=== PATIENT | male | born 1970 | race African-American/Black ===

== ENCOUNTER 2022-04-17 18:35 | Observation (INO) ==
[2022-04-17] MEDS ORDERED: ASPIRIN 325 MG TABLET PO STA (19:14)
[2022-04-17 20:04] LABS: Basophils % 0.4 % (0.0-0.8); Eosinophils # 0.2 10*3/uL (0.0-0.87); Eosinophils % 1.9 % (0.00-10.9); Hematocrit 40.8 VOL% (42.0-52.0); Hemoglobin 13.2 GM/DL (14.0-18.0); Immature Granulocytes % 0.2 %; Immature Granulocytes Absolute 0.02 #; Lymphocytes # 2.6 10*3/uL (1.4-4.0); Lymphocytes % 30.7 % (21.2-54.2); Mean Corpuscular HGB Conc 32.4 GM/DL (32-36); Mean Corpuscular Volume 77.1 FL (87-102); Mean Platelet Volume 9.6 FL (9.6-12.0); Monocytes # 0.6 10*3/uL (0.11-0.8); Monocytes % 7.6 % (1.7-12.7); Neutrophils % 59.2 % (38.7-73.9); Platelet Count 273 T/CUMM (130-400); Red Blood Count 5.29 MC/CUMM (3.8-5.5); Red Cell Distribution Width 17.7 % (9.3-17.3); White Blood Count 8.3 T/CUMM (4-12)
[2022-04-17 20:29] LABS: Alanine Aminotransferase 23 U/L (16-61); Albumin 3.6 G/DL (3.4-5.0); Alkaline Phosphatase 97 U/L (45-117); Aspartate Amino Transferase 16 U/L (0-37); Blood Urea Nitrogen 17 MG/DL (7-18); Calcium 9.3 MG/DL (8.5-10.1); Carbon Dioxide 26 MMOL/L (21-32); Chloride 109 MMOL/L (98-107); Glucose 77 MG/DL (74-106); Osmolality,Calculated 277.5 MOS/KG (273-304); Potassium 4.5 MMOL/L (3.5-5.1); Sodium 139 MMOL/L (136-145); Total Protein 7.2 G/DL (6.4-8.2)
[2022-04-17 20:35] LABS: PT Patient Result 11.2 SECS (10.5-12.0)
[2022-04-17 21:21] LABS: Mucus,Urine Moderate /LPF (Occasional); RBC,Urine 1 /HPF (0-4); Squamous Epithelial Cell,Urine Occasional /HPF (0-10)
[2022-04-17 21:25] LABS: Glucose,Urine (UA) Negative (Negative); Ketones,Urine Negative (Negative); Protein,Urine Negative (Negative); Urine Appearance Clear (Clear); Urine Color Yellow (Yellow); Urine Specific Gravity > 1.030 (1.001-1.035)
[2022-04-17 21:26] LABS: Bilirubin,Urine Negative (Negative); Blood, Urine Negative (Negative); Nitrite,Urine Negative (Negative)
[2022-04-17 21:40] LABS: Barbiturates Screen,Urine Negative (Negative); Benzodiazepines Screen,Urine Negative (Negative); Cannabinoid Screen,Urine Negative (Negative); Opiate Screen,Urine Negative (Negative); Phencyclidine Screen,Urine Negative (Negative)
[2022-04-17] MEDS ORDERED: hydrALAZINE 20 MG/1 ML VIAL IV PRN (21:42)
[2022-04-17] MEDS ORDERED: ONDANSETRON 4 MG/2 ML VIAL IV PRN (21:42)
[2022-04-17] MEDS ORDERED: GLUCAGON 1 MG VIAL IM PRN (21:42)
[2022-04-17] MEDS ORDERED: DEXTROSE 10% 250 ML BAG IV PRN (21:42)
[2022-04-17] MEDS ORDERED: NICOTINE 21 MG/24 HR PATCH TRANSDERM PRN (22:04)
[2022-04-17] MEDS: ENOXAPARIN 40 MG/0.4 ML SYRINGE SUBCUT SCH (22:27)
[2022-04-18 05:30] LABS: % Iron Saturation 22.6 % (18-50); Ferritin 79.5 ng/mL (26-388)
[2022-04-18 05:39] LABS: Calcium 9.1 MG/DL (8.5-10.1); Osmolality,Calculated 277.5 MOS/KG (273-304); Potassium 3.7 MMOL/L (3.5-5.1); Risk Ratio 5.61; Thyroid Stimulating Hormone 1.22 uIU/ml (0.358-3.74); VLDL Cholesterol 20.6 MG/DL
[2022-04-18] MEDS: INSULIN LISPRO 100 UNIT/ML SUBCUT SCH ×4 (07:36→21:42)
[2022-04-18] MEDS ORDERED: ASPIRIN EC 325 MG TABLET PO SCH (09:00)
[2022-04-18] MEDS ORDERED: amLODIPine 5 MG TABLET PO SCH (09:00)
[2022-04-18] MEDS ORDERED: ATORVASTATIN 40 MG TABLET PO SCH (21:00)
[2022-04-18] MEDS: ENOXAPARIN 40 MG/0.4 ML SYRINGE SUBCUT SCH (21:42)
[2022-04-19 08:35] VITALS: BP 154/80
[2022-04-19] MEDS ORDERED: amLODIPine 5 MG TABLET PO SCH (09:00)
[2022-04-19] MEDS ORDERED: ASPIRIN EC 81 MG TABLET PO SCH (09:00)
[2022-04-19] MEDS: INSULIN LISPRO 100 UNIT/ML SUBCUT SCH ×2 (09:34→11:25)
[2022-04-20 17:25] LABS: Folate 14.99 NG/ML (5.38-24.0)
== END 2022-04-19 14:32 ==
LOC: N.ED 18:35 → N.3W 18:35 → SUATTDRO 21:42 → N.3W 22:33
PROVIDERS: ADMIT Internal Medicine Geriatric Medicine; ATTEND Internal Medicine